=== PATIENT | male | born 1955 | race Caucasian/White ===

== ENCOUNTER → 2023-05-14 13:10 | Outpatient (BNVA) | payer OTHER, SELFPAY | PROVIDERS: PCP Emergency Medicine Emergency Medical Services; Visit Provider Dermatology | DX: I78.8 Other diseases of capillaries (principal) | CPT/HCPCS: 17000; 17003; 99213 ==

== ENCOUNTER → 2024-04-07 13:07 | Outpatient (BNVA) | payer OTHER, SELFPAY | PROVIDERS: PCP Emergency Medicine Emergency Medical Services; Referring Provider Nurse Practitioner; Visit Provider Surgery | DX: Z12.11 Encounter for screening for malignant neoplasm of colon (principal) | CPT/HCPCS: 99203 ==

== ENCOUNTER 2024-04-20 11:12 | Day surgery (SDC) | payer OTHER, SELFPAY ==
[2024-04-20 11:34] VITALS: BP 167/88; PULSE 69; RESP 18; TEMP 36.3; O2SAT 98; BMI 25.8
[2024-04-20] MEDS: sodium chloride 0.9% 1,000 ML 30 ML IV (11:50)
[2024-04-20 11:53] LABS: Glucose Point of Care 112 mg/dL (70-110)
--- NOTE | 2024-04-20 11:56 | ANES.PREANE2 ---
Pre-Anesthetic Assessment Height/Weight: Height 1.78 m Weight 81.647 kg Temp Pulse Resp BP Pulse Ox O2 Del Method 97.3 F L 69 18 167/88 98 Room Air 04/20/24 11:34 04/20/24 11:34 04/20/24 11:34 04/20/24 11:34 04/20/24 11:34 04/20/24 11:34 Operation Date: 04/20/24 12:30 Proposed Procedures p Colonoscopy 07491, G0121, Z12.11(Not Applicable) - Tyler Barber MD Familial anesthetic complications: None Was Beta Dre taken within 24 hours: N/A Was Clonidine taken within 24 hours: N/A Last intake: Intake Last Liquid Date 04/18/24 Last Liquid Time 08:00 Last Solid Date 04/18/24 Last Solid Time 14:00 Social No alcohol and No tobacco Exam alert, oriented x 3, clear to auscultation bilaterally and regular rate & rhythm Airway Mallampati: Class II Dentition: full CV/HEM Hypertension Metabolic Diabetes Mellitus Anesthetic Plan ASA status: 2 Anesthesia: MAC Risk of > 500 ml blood loss (7ml/kg in children): No Medications/Allergies Home Medications Medication Instructions Recorded Confirmed Last Taken Type lisinopril 5 mg tablet 5 mg PO DAILY 04/24/20 04/20/24 04/18/24 History empagliflozin 10 mg tablet 10 mg PO DAILY 04/18/22 04/20/24 04/18/24 History (Jardiance) glipizide 10 mg tablet 10 mg PO DAILY 04/07/24 04/20/24 04/18/24 History Allergies Allergy/AdvReac Type Severity Reaction Status Date / Time No Known Allergies Allergy Verified 04/15/24 12:27 Current Medications Generic Name Dose Route Start Last Admin Trade Name Freq PRN Reason Stop Dose Admin Sodium Chloride 1,000 mls @ 30 mls/hr 04/20/24 11:30 04/20/24 11:50 Sodium Chloride 0.9% IV 04/21/24 11:29 30 mls/hr .Q24H ELISABET Administration PFSH Anesthesia Medical History History of nonmelanoma skin cancer Diabetes Surgical History No pertinent past surgical history Social History Smoking and tobacco/nicotine status: never used tobacco/nicotine Alcohol intake: never Substance/Drug Use: never Data Anesthesia Cardiac Studies: No Data to Display
--- NOTE | 2024-04-20 11:59 | P.HPUD_ITS ---
Surgery/Procedure H&P Update DATE OF PROCEDURE: April 20, 2024 DATE H&P PERFORMED: 04/07/24 H&P UPDATE INFORMATION: I have reviewed H&P completed within last 30 days, I have examined patient prior to procedure, No changes to prior documentation and H&P is in [facility] EMR on date indicated PLANNED PROCEDURE: Operation Date: 04/20/24 12:30 Proposed Procedures p Colonoscopy 90761, G0121, Z12.11(Not Applicable) - Tyler Barber MD
--- NOTE | 2024-04-20 11:59 | W.PM.OPSUD ---
Surgery/Procedure H&P Update DATE OF PROCEDURE: April 20, 2024 DATE H&P PERFORMED: 04/07/24 H&P UPDATE INFORMATION: I have reviewed H&P completed within last 30 days, I have examined patient prior to procedure, No changes to prior documentation and H&P is in [facility] EMR on date indicated PLANNED PROCEDURE: Operation Date: 04/20/24 12:30 Proposed Procedures p Colonoscopy 69170, G0121, Z12.11(Not Applicable) - Tyler Barber MD
[2024-04-20 13:09] VITALS: BP 121/72; PULSE 69; RESP 12; TEMP 36.1; O2SAT 96
[2024-04-20 13:13] VITALS: BP 122/79; PULSE 68; RESP 16; O2SAT 94
[2024-04-20 13:22] VITALS: BP 135/78; PULSE 75; RESP 16; O2SAT 94
--- NOTE | 2024-04-20 13:40 | ANE.PACU2 ---
Inpatient post-anesthesia follow up: Airway intact: Yes Vital signs: Temperature 97 F Pulse Rate 75 Respiratory Rate 16 Blood Pressure 135/78 Pulse Oximetry 94 Oxygen Delivery Me thod Room Air Oxygen Flow Rate Fraction of Inspir ed Oxygen Hydration adequate: Yes Nausea and vomiting: No Pain level: 1 Mental status: Baseline
== END 2024-04-20 13:41 | disposition home or self-care (01) ==
PROVIDERS: Visit Provider Surgery
PROC: 0DJD8ZZ Inspection of Lower Intestinal Tract, Via Natural or Artificial Opening Endoscopic (ICD-10-PCS; CPT 45378; principal; 2024-04-20 12:30)
DX: Z12.11 Encounter for screening for malignant neoplasm of colon (principal); K57.30 Diverticulosis of large intestine without perforation or abscess without bleeding; D12.8 Benign neoplasm of rectum; I10 Essential (primary) hypertension; E78.5 Hyperlipidemia, unspecified; E11.9 Type 2 diabetes mellitus without complications
CPT/HCPCS: 36416; 45380; 82962; 88305; J2704; J7030

== ENCOUNTER → 2024-05-12 07:45 | Outpatient (BNVA) | payer OTHER, SELFPAY | PROVIDERS: Visit Provider Surgery | DX: Z09 Encounter for follow-up examination after completed treatment for conditions other than malignant neoplasm (principal) | CPT/HCPCS: 99213 ==